=== PATIENT | female | born 1945 | race Caucasian/White ===

== ENCOUNTER → 2016-06-22 | Outpatient (REF) ==
[2016-06-22 09:53] LABS: THYROID STIMULATING HORMONE 2.19 uIU/mL (0.465-4.680)
== END ==
LOC: ZLAB.WCH 09:03
PROVIDERS: Physician Assistant
DX: Z01.89 Encounter for other specified special examinations (principal)

== ENCOUNTER → 2016-08-14 | Outpatient (REF) | LOC: ZLAB.WCH 10:23 | DX: Z01.89 Encounter for other specified special examinations (principal) ==

== ENCOUNTER → 2017-03-25 | Outpatient (REF) | LOC: ZLAB.WCH 11:13 | DX: Z01.89 Encounter for other specified special examinations (principal) ==

== ENCOUNTER → 2017-04-21 | Outpatient (CLI) | payer MEDICARE, OTHER | LOC: COL.RAD 12:46 | DX: N39.0 Urinary tract infection, site not specified (principal); R36.0 Urethral discharge without blood | CPT/HCPCS: Q9967 ==

== ENCOUNTER → 2017-08-01 | Outpatient (REF) ==
[2017-08-01 18:33] LABS: THYROID STIMULATING HORMONE 0.966 uIU/mL (0.465-4.680)
== END ==
LOC: ZLAB.WCH 17:49
PROVIDERS: Family Medicine
DX: Z01.89 Encounter for other specified special examinations (principal)